=== PATIENT | male | born 1990 | race Caucasian/White ===

== ENCOUNTER 2025-01-30 13:43 | Outpatient (AMB) | payer OTHER, SELFPAY ==
--- NOTE | 2025-01-30 13:46 | A.SPINEOV_ITS ---
Vital Signs 01/30/25 13:55 Height 6 ft Weight 220 lb BMI 29.8 Intake Visit Reasons: Neck pain Intake Note: Mr. Zapata is here today c/o neck pain that radiate down to the arms. 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 He saw Dr. Cedillo about 3 years ago for herniated cervical disc in his neck a C5-6 on the left. He resolved without surgery after a dedicated course of physical therapy. He was doing okay until about 2 weeks ago when he started to notice a little bit of discomfort in his left neck and left arm but 2-3 days ago developed a severe left arm radiculopathy radiating down into the back of his hand. It is very similar to the previous pain that he had before but only much more intense. He was taking ibuprofen, and took a few gabapentin and that seemed to help a little bit. He has been unable to sleep, unable to go to work and he is very uncomfortable. No myelopathic complaints. He does feel weakness in his left arm especially with movement or attempting to use it. He has been doing the physical therapy exercises that he was trained on a few years ago. He came in today for an evaluation. PMH: He has had repair of fractures in both of his wrists, depression, anxiety, IBS but no other major medical problems. Social hx: He does not smoke, on the weekends he will use alcohol and marijuana Medications: Hyoscyamin, and citalopram Allergies: Lactose and sulfa Physical exam: Awake alert oriented, very uncomfortable, positive Spurling sign, a lot of difficulty with cooperating with exam secondary to pain. He may have some weakness of his left triceps which I would rate as 4-5. Reflexes are normal, no Terrazas's, no clonus, gait is normal Imaging review: There is an old MRI from 2021 I believe done at [place] which he brought with him and that shows herniated disc on the left at C5-6 Impression: 34-year-old male who appears to be presenting with recurrence of herniated disc. He saw Dr. Cedillo about 3 years ago with left C5-6 disc herniation and has the exact same pain back now but even more intense. It has only been there few weeks. He has been doing some basic conservative management as outlined above. I called him in a steroid pack, Pepcid and some gabapentin. I told him to take the ibuprofen out of his medication regimen while he is on the steroid. I did order an MRI, but admonished him that given his health insurance company [facility] is likely going to require him to do 6 weeks of therapy before allowing us to do this. I gave him a referral for PT in anticipation of this response from [facility]. I will see him back after the MRI. Thank you for allowing us to care for your patient. The total time spent with this visit with this patient was 45 minutes reviewing history, physical exam, previous cervical MRI imaging review, and implementation of treatment plan or further diagnostic testing Tejas Cedillo MD,PhD [facility] Orders: Orders MR cervical spine wo con Today M54.12 - Radiculopathy, cervical region PT Evaluation and Treatment Today M54.12 - Radiculopathy, cervical region Medications: New gabapentin 300 mg PO TID 90 caps 0RF methylprednisolone take as directed on package 4 mg PO DAILY 21 ea 0RF famotidine (Pepcid) 20 mg PO BID 1 week 14 tabs 0RF Coding Level of Care Code New Pt Level 4 (47494) Diagnoses Cervical radiculopathy M54.12
[2025-01-30 13:55] VITALS: BMI 29.8
== END 2025-01-30 15:09 | disposition home or self-care (01) ==
LOC: HO.HNS 13:43
PROVIDERS: Visit Provider Physician Assistant
DX: M54.12 Radiculopathy, cervical region (principal)
CPT/HCPCS: 99204

== ENCOUNTER 2025-02-05 19:55 | Outpatient (REF) | payer OTHER, SELFPAY ==
--- NOTE | ~2025-02-05 | MR_ITS ---
EXAMINATION: MR CERVICAL SPINE WITHOUT CONTRAST CLINICAL INFORMATION: Radiculopathy, cervical region. COMPARISON: None available. TECHNIQUE: MRI of the cervical spine was obtained using routine sequences without contrast. FINDINGS: Craniocervical junction is intact. No bone marrow STIR signal abnormality. Multilevel disc desiccation and marginal osteophyte formation C5-6 and C6-7 levels. Grade 1 retrolisthesis C5-6. Grade 1 anterolisthesis C6-7. Cervical spinal cord signal is normal. C2-3: No disc herniation. No neuroforamina stenosis. C3-4: Broad-based disc osteophyte complex formation. No cord compression. No neuroforamina stenosis. C4-5: Right-sided disc osteophyte consummation. No cord compression. No neuroforamina stenosis. C5-6: Central disc osteophyte compresses formation resulting in ventral spinal cord deformity. No cord signal abnormality. Bilateral, left greater than the right side neuroforamina narrowing. C6-7: Left-sided disc osteophyte complex formation resulting in ventral spinal cord deformity. No cord signal abnormality. Left neuroforamina and narrowing/stenosis. C7-T1: No disc herniation. No neuroforamina stenosis. No prevertebral compartment hematoma, mass or fluid collection. Flow-void signal within the main vessels is normal. Left vertebral artery is dominant. Nonspecific prominent cervical lymph nodes. Hyperintense T2 STIR signal abnormality within the saurav and likely cerebellar white matter.. MR/MR cervical spine wo con IMPRESSION: Spondylosis, C5-6 and C6-7 levels resulting in spinal cord deformity without cord edema and or myelopathy. Left-sided neuroforamina narrowing at C5-6 and C6-7 on a degenerative basis. 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 Electronically signed by: Can Mcclellan MD 02/06/2025 07:40 AM EDT
== END 2025-02-05 19:56 | disposition home or self-care (01) ==
LOC: HO.MRI 19:55
PROVIDERS: Visit Provider Physician Assistant
DX: M54.12 Radiculopathy, cervical region (principal)
CPT/HCPCS: 72141

== ENCOUNTER → 2025-02-05 20:08 | Outpatient (BNV) | payer OTHER, SELFPAY | PROVIDERS: Visit Provider Radiology Diagnostic Radiology | DX: M47.812 Spondylosis without myelopathy or radiculopathy, cervical region (principal); M99.71 Connective tissue and disc stenosis of intervertebral foramina of cervical region | CPT/HCPCS: 72141 ==

== ENCOUNTER 2025-02-09 14:22 | Outpatient (AMB) | payer OTHER, SELFPAY ==
--- NOTE | 2025-02-09 15:01 | HO.SPINEOV ---
Intake Visit Reasons: MRI f/u Intake Note: Mr. Zapata is here today to F/u on the results to his MRI. 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 Unfortunately, it shows he has a left disc herniation at C6-7 which I suspect is the main culprit of his pain he is currently having. However, the C5-6 foramen on the left is also somewhat narrowed. We talked about the natural history of herniated discs in the neck. This would now be his 2nd 1 that he has experienced in the last 2 years. The pain has been disabling and it is significantly affecting his quality of life. He is currently starting physical therapy so we are going to let that play out because it did help him out a lot last time. He completed the course of steroids. The gabapentin is helping. He will resume the Motrin and Tylenol now that the steroid is finished. I am going to review his imaging with Dr. Cedillo to see if he thinks that if he fails conservative treatment he would benefit from total disc arthroplasty given his young age. I am not sure if he would want to do both the C5-6 and the C6-7, or stick with the C6-7 as it appears to be the acute problem. Also, the patient's report on the cervical spine mentioned small-vessel white matter disease in the brain, but I need some clarification on this from the radiologist as I do not appreciate what they are mentioning in the report. I will see if I can get this amended or updated if there is some confusion. If there is something that looks meaningful, we could always consider brain MRI. Total amount of time spent in this visit was 20 minutes in discussion of symptoms, cervical MRI imaging results and subsequent plan of care Tejas Cedillo MD,PhD [facility] Coding Level of Care Code Est Pt Level 3 (46412) Diagnoses Cervical radiculopathy M54.12
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
--- OUTSIDE RECORDS SUMMARY | 2025-02-09 15:52 | XMS_ITS | Clinical Summary ---
Author Organization [facility] Address [address] [place] [address] Care Team Providers Care Head Boys Golf Coach Name Role Phone Cally Frost MD Primary Care Provider [phone] Source Comments PLEASE NOTE, if this patient is a minor, it may be UNLAWFUL to discuss sensitive information that is contained in these records (such as FAMILY PLANNING, MENTAL HEALTH or SUBSTANCE ABUSE) with the minor patient's parent or other person without the patient's specific authorization.[facility] Allergies Active Allergy Reactions Criticality Noted Date Comments Lactose 08/29/2013 Sulfa (Sulfonamide Antibiotics) Rash 08/10 Medications oxybutynin (DITROPAN) 5 mg tablet Take 0.5 Tabs by mouth 2 (two) times daily as needed for incontinenc e. 10 Tab 0 08/29/2013 Active ergocalciferol, vitamin D2, (VITAMIN D2) 50,000 unit capsuleIndicatio ns:Vitamin D deficiency Take 1 Cap by mouth once a week. 4 Cap 2 09/01/2013 Active fluticasone (FLONASE) 50 mcg/actuation nasal sprayIndications :Sinusitis Place [address] [place] into the nostril(s) once daily. 16 g 1 01/07/2014 Active Active Problems Problem Noted Date Diagnosed Date Vitamin D deficiency 09/01/2013 Urine frequency 08/29/2013 Urgency of micturation 08/29/2013 Smoking 08/29/2013 Alcohol use 08/29/2013 Scaphoid fracture of wrist bilaterally 3 Metacarpal bone fracture- 4 and 5 th finger of r ight hand 08/29/2013 Immunizations Immunization Administration Dates Next Due INFLUENZA, SEASONAL, INJECTABLE 08/29/2013 Family History Medical History Relation Name Comments Hypertension Father Hypertension Mother Relation Name Status Comments Father Mother Social History Tobacco Use Types Packs/Day Years Used Date Smoking Tobacco: Some Days Cigarettes Smokeless Tobacco: Never Tobacco Cessation:Ready to Q uit: No Alcohol Use Standard Drinks/Week Comments Yes 3.3 (1 standard drink = 0.6 oz p ure alcohol) every weekend Sex and Gender Information Value Date Recorded Sex Assigned at Not on file Legal Sex Male 11:36 AM PDT Gender Identity Not on file Sexual Orientation Not on file Last Filed Vital Signs Vital Sign Reading Time Taken Comments Blood Pressure 118/80 01/06/2014 11:09 AM EST Pulse 60 01/06/2014 11:09 AM EST Temperature 36.6 ??C (97.8 ??F) 01/06/2014 11:[address] Respiratory Rate 20 01/06/2014 11:09 AM EST Oxygen Saturation - - Inhaled Oxygen Concentration - - Weight 82.6 kg (182 lb) 01/06/2014 11:09 AM EST Height 182.9 cm (6') 01/06/2014 11:09 AM EST Body Mass Index 24.68 01/06/2014 11:09 AM EST Plan of Treatment Not on file Insurance [facility] [employer] PLAN Member Subscriber Plan / Payer (Ef fective 2013-Present) Name:Milad Zapata Relation to Subscriber:Self Name:Milad Zapata Payer ID:[id number] Group ID:[id number] Type:Medicaid Address: [facility] [address] [place] [address] Care Teams Head Boys Golf Coach Relationship Specialty Start Date End Date Cally Frost MD [address] [place] [address] PCP - General Internal Medicine 08/29/13
== END 2025-02-09 15:39 | disposition home or self-care (01) ==
LOC: HO.HNS 14:22
PROVIDERS: Visit Provider Physician Assistant
DX: M54.12 Radiculopathy, cervical region (principal)
CPT/HCPCS: 99213

== ENCOUNTER 2025-02-28 19:28 | Outpatient (REF) | payer OTHER, SELFPAY ==
--- NOTE | ~2025-02-28 | MR_ITS ---
EXAMINATION: MR BRAIN WITHOUT CONTRAST CLINICAL INFORMATION: Possibility of white matter disease. COMPARISON: Correlated to MRI cervical spine dated February 05, 2025. TECHNIQUE: MRI of the brain was obtained using routine sequences without contrast. FINDINGS: No restricted diffusion. No acute intracranial hemorrhage, mass effect, midline shift, hydrocephalus or herniation. Nguyen-white matter differentiation is normal. There is a subtle patchy hyperintense T2 FLAIR signal within the midline and left midline of the saurav. Flow-void signal within the main cerebral vessels is normal. Sellar/suprasellar region demonstrated no signal abnormality or masses. Craniocervical junction is intact. MR/MR head/brain wo con IMPRESSION: Subtle patchy T2 FLAIR signal, dorsal midline and left midline saurav. Consider IV contrast enhanced sequences. Recommend follow-up in 3 months for stability. Electronically signed by: Can Mcclellan MD 03/01/2025 06:04 AM EDT
--- OUTSIDE RECORDS SUMMARY | 2025-02-28 19:31 | XMS_ITS | Clinical Summary ---
Author Organization [facility] Address [address] [place] [address] Care Team Providers Care Interactive Digital Media Specialist Name Role Phone Niraj Munoz MD Primary Care Provider [phone] Surgical History Surgery Date Site/Laterality Comments WRIST [...] PM EDT Office Visit Internal Medicine - [place] [address] [facility] [address] [place] [address] Niraj Munoz MD 175 [facility] [address] [place] [address] Health Maintenance Due Date Last Done Comments Hepatitis B Vaccines (1 of 3 - 19+ 3-dose series) 2008 Cholesterol Screening (Lipid Panel) 10/18/2022 Depression Screening 10/18/2022 HIV Screening 10/18/2022 Hepatitis C Screening 10/18/2022 Social Influencers of Health Screening 10/18/2022 COVID-19 Vaccine ( season) 2024 08/23/2022, 11/20/2021, 05/02/2021, Additional history exists Influenza Vaccine (Season Ended) 2025 08/06/2023, 09/10/2022, 09/04/2020, Additional history exists DTaP,Tdap,and Td [...] age to complete this topic Meningococcal B Vaccine Aged Out No l onger eligible based on patient's age to complete [...] age to complete this topic Care Teams Interactive Digital Media Specialist Relationship Specialty Start Date End Date Niraj Munoz MD [address] [place] [id number] PCP - General 07/08/24
== END 2025-02-28 19:29 | disposition home or self-care (01) ==
LOC: HO.MRI 19:28
PROVIDERS: PCP Internal Medicine; Visit Provider Physician Assistant
DX: R90.89 Other abnormal findings on diagnostic imaging of central nervous system (principal)
CPT/HCPCS: 70551

== ENCOUNTER → 2025-02-28 19:35 | Outpatient (BNV) | payer OTHER, SELFPAY | PROVIDERS: PCP Internal Medicine; Visit Provider Radiology Diagnostic Radiology | DX: M54.12 Radiculopathy, cervical region (principal) | CPT/HCPCS: 70551 ==

== ENCOUNTER 2025-03-17 13:22 | Outpatient (AMB) | payer OTHER, SELFPAY ==
--- NOTE | 2025-03-17 13:39 | A.SPINEOV_ITS ---
Intake Visit Reasons: discuss sx Intake Note: Mr. Zapata is here today to discuss surgery. Vehicle Damage Appraiser Required: No Allergies lactose Allergy (Severe, Verified 02/09/25 15:02) Unknown Sulfa (Sulfonamide Antibiotics) Allergy (Severe, Verified 02/09/25 15:02) Unknown Assessment & Plan Assessment & Plan (1) Cervical radiculopathy: Code(s): M54.12 - Radiculopathy, cervical region Category: Medical (2) Abnormal brain MRI: Code(s): R90.89 - Other abnormal findings on diagnostic imaging of central nervous system Category: Medical Plan Dear colleague, On 03/17/2025 I saw for follow-up Milad Zapata. He returned to our clinic with pain radiating down his left arm and dorsum of his hand. An MRI showed and herniated disc C6-7 and a disc bulge C5-6 on the left side. He was offered a 2 level artificial disc in case the symptoms would not disappear. He went to physical therapy and currently he is doing well. He denies radiating pain down his left arm. A T2 abnormality was seen in the saurav and an MRI of the brain was ordered which came back showing a small spot in the left saurav. The recommendation was to repeat the MRI in 3 months with gadolinium which we will do. The patient will call for the results. I spent 20 minutes in reviewing imaging and discussing plan of care. Norman Cedillo MD, PhD Spine Fellowship Trained Neurosurgeon Director, [facility] Orders: Orders MR head/brain wo/w con 3 Months R90.89 - Other abnormal findings on diagnostic imaging of central nervous system Coding Level of Care Code Est Pt Level 3 (36911) Diagnoses Cervical radiculopathy M54.12 Abnormal brain MRI R90.89
== END 2025-03-17 14:33 | disposition home or self-care (01) ==
LOC: HO.HNS 13:23
PROVIDERS: PCP Internal Medicine; Visit Provider Neurological Surgery
DX: M54.12 Radiculopathy, cervical region (principal); R90.89 Other abnormal findings on diagnostic imaging of central nervous system
CPT/HCPCS: 99213

== ENCOUNTER → 2025-06-23 17:46 | Outpatient (BNV) | payer OTHER, SELFPAY | PROVIDERS: PCP Internal Medicine; Visit Provider Radiology Diagnostic Radiology | DX: R51.9 Headache, unspecified (principal) | CPT/HCPCS: 70553 ==

== ENCOUNTER 2025-06-23 17:47 | Outpatient (REF) | payer OTHER, SELFPAY ==
--- NOTE | ~2025-06-23 | MR_ITS ---
EXAMINATION: MR BRAIN WITHOUT AND WITH CONTRAST CLINICAL INFORMATION: Headache COMPARISON: February 28, 2025 TECHNIQUE: Multiplanar, multisequence MRI of the brain was obtained before and after the intravenous administration of 10.0 mL gadolinium based (Gadavist) without reported immediate complications.. FINDINGS: No abnormal enhancement within the intra-axial or the extra-axial compartment of the cranium. No restricted diffusion. 6 mm subtle hyperintense T2 signal left midline saurav. No acute intracranial hemorrhage, mass effect, midline shift, hydrocephalus or herniation. Nguyen-white matter differentiation is normal. Sellar/suprasellar region demonstrated no signal abnormality or gross mass. Craniocervical junction demonstrates normal position of the cerebellar tonsils. Flow-void signal within the main cerebral vessels is normal. There is a dolichoectatic left vertebral vascular system. MR/MR head/brain wo/w con IMPRESSION: No abnormal enhancement. No acute stroke/nonhemorrhagic ischemia. No acute intracranial hemorrhage. 6 mm left midline saurav signal abnormality. Stable. Recommend follow-up. Electronically signed by: Can Mcclellan MD 06/26/2025 07:22 AM EDT
--- OUTSIDE RECORDS SUMMARY | 2025-06-23 17:49 | XMS_ITS | Encounter Summary ---
Author Organization [facility] Address [address] [place] [address] Care Team Providers Care Manager Of Financial Reporting Name Role Phone Niraj Munoz MD Primary Care Provider [phone] Encounter Details Date Type Department Care Team (Late Contact Info) Description 06/12/[address] [facility] - Main Lab [address] [facility] [place] [address] Tejas Rodrigez MD [address] [facility] [address] [place] [address] Testicular hypofunction Social History Tobacco Use Types Packs/Day Years [...] on file Sexual Orientation Not on file documented as of this encounter Plan of Treatment Upcoming Encounters Date Type Department Care Team (Late Contact Info) Description 08/03/2025 2:00 PM EDT Office Visit Internal Medicine - [place] [address] [facility] [address] [place] [address] Niraj Munoz MD 175 [facility] 200 [place] [address] documented as of this encounter Procedures Procedure Name Priority Date/Time Associated Diagnosis Comments COMPLETE BLOOD COUNT Routine 06/12/2025 9:47 AM EDT Testicular hypofunction documented in this encounter Results * Complete blood count (06/12/2025 9:47 AM EDT) [facility] Signature WBC 6.4 4.8 - 10.8 K/mcL LAB HEMETOLOGY METHOD 06/12/2025 1:36 PM EDT [facility] RBC 4.90 4.50 - 5.50 M/mcL LAB [facility] Hemoglobin 15.4 13.5 - 17.5 g/dL LAB HEMETOLOGY METHOD 06/12/2025 1:36 PM [facility] Hematocrit 44.2 42.0 - 54.0 % LAB HEMETOLOGY METHOD 06/12/2025 1:36 PM [facility] MCV 89.7 79.0 - 98.0 FL LAB HEMETOLOGY METHOD 06/12/2025 1:36 PM [facility] MCH 31.2 27.0 - 32.0 pcg LAB HEMETOLOGY METHOD 06/12/2025 1:36 PM [facility] MCHC 34.8 32.0 - 37.0 g/dL LAB HEMETOLOGY METHOD 06/12/2025 1:36 PM [facility] RDW 12.7 11.0 - 15.0 % LAB HEMETOLOGY METHOD 06/12/2025 1:36 PM [facility] Platelets 212 130 - 400 K/mcL LAB HEMETOLOGY METHOD 06/12/2025 1:36 PM [facility] MPV 11.0 7.0 - 11.0 FL LAB HEMETOLOGY METHOD 06/12/2025 1:36 PM [facility] NRBC 0.0 <1.0 % LAB HEMETOLOGY METHOD 06/12/2025 1:36 PM [facility] NRBC Absolute 0.00 <0.10 K/mcL LAB HEMETOLOGY METHOD 06/12/2025 1:36 PM EDT [facility] Blood Venous blood specimen / Unknown 06/12/2025 9:47 AM EDT 06/12/2025 12:20 PM EDT us Tejas Rodrigez MD LAB BLOOD ORDERABLES Final Result [facility] ([facility] [address] [place] [address], documented in this encounter Visit Diagnoses Diagnosis Testicular hypofunction Other testicular hypofunction documented in this encounter Care Teams Manager Of Financial Reporting Relationship Specialty Start Date End Date Niraj Munoz MD [address] [address] PCP - General 07/08/24 documented as of this encounter
== END 2025-06-23 17:48 | disposition home or self-care (01) ==
LOC: HO.MRI 17:47
PROVIDERS: PCP Internal Medicine; Visit Provider Neurological Surgery
DX: R09.89 Other specified symptoms and signs involving the circulatory and respiratory systems (principal)
CPT/HCPCS: 70553; A9585

== ENCOUNTER 2025-10-27 09:40 | Outpatient (AMB) | payer OTHER, SELFPAY ==
--- NOTE | 2025-10-27 09:50 | MHC.PC.OV ---
Vital Signs 10/27/25 09:51 Height 5 ft 9.76 in Weight 230 lb BMI 33.2 BP 130/80 Blood Pressure Location Rt brachial Position Sitting Respiration 16 Pulse 72 Pulse Source Pulse Oximeter Temp 98 F Temp Source Oral Pulse Oximetry (%) 95 Oxygen Delivery Method Room Air Intake Visit Reasons: CPE Allergies lactose Allergy (Severe, Verified 10/27/25 09:51) Unknown Sulfa (Sulfonamide Antibiotics) Allergy (Intermediate, Verified 10/27/25 09:51) Hives Tobacco use date assessed: 10/27/25 Dental Screening Dental Screen Date: 10/27/25 Did you have a dental visit in the last 12 months?: Yes Did you have a dental problem in the last 6 months where you did not have access to dental care?: No Was dental information given to patient?: Patient has dentist HPI HPI Comments History of Present Illness Details 35 year old male with a past medical history of low testosterone, cervical radiculopathy, IBS, anxiety presenting to establish care/CPE Anxiety: Was on celexa. Doing ok off medication. Tried sertraline. Urology: Follows with [facility] urology. Low testosterone. Had extreme fatigue, decreased libido History of bilateral wrist injury snowboarding. Had bilateral wrist surgery at [facility] Colonoscopy in 2020-10 years. Family history of issues, was having GI issues. Has not needed hyoscyamine Dental UTD ROS CONSTITUTIONAL: Denies weight loss, fever and chills. HEENT: Denies changes in vision and hearing. RESPIRATORY: Denies SOB and cough. CV: Denies palpitations and CP GI: Denies abdominal pain, nausea, vomiting and diarrhea. : Denies dysuria and urinary frequency. MSK: Denies new myalgia and joint pain. SKIN: Denies rash and pruritus. NEUROLOGICAL: Denies headache PSYCHIATRIC: Denies recent changes in mood. PHYSICAL EXAM: GENERAL: Alert and oriented x 3. NAD EYES: EOMI. Anicteric. HENT: Moist mucous membranes. No scleral icterus. No cervical lymphadenopathy. LUNGS: Clear to auscultation bilaterally. CARDIOVASCULAR: Regular rate and rhythm. No murmur. No JVD. ABDOMEN: Soft, non-tender +bs EXTREMITIES: No edema. Non-tender. SKIN: No rashes or lesions. Warm. NEUROLOGIC: No focal neurological deficits. CN II-XII grossly intact PSYCHIATRIC: Cooperative. Appropriate mood and affect [facility] Surgical History H/O right wrist surgery H/O left wrist surgery Family History Mother HTN (hypertension) Father HTN (hypertension) COPD (chronic obstructive pulmonary disease) Chronic back pain Cardiac disease Sister Asthma Maternal Grandmother Stroke Paternal Grandmother Lung cancer Maternal Grandfather Lung cancer Other Substance abuse Social History Housing: House Alcohol intake: current Patient Tobacco Use Status: Former Tobacco user Cigarette Packs Per Day: 0.5 Years Smoked: 9 e-Cigarette/Vaping Use: Currently Using Second Hand Smoke Exposure: No Substance Use Type: Marijuana service: No Current occupational status: employed 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 1. Little interest or pleasure in doing things: not at all 2. Feeling down, depressed, or hopeless: not at all 3. Trouble falling or staying asleep, or sleeping too much: several days 4. Feeling tired or having little energy: more than half the days 5. Poor appetite or overeating: not at all 6. Feeling bad about yourself - or that you are a failure or have let yourself or your family down: not at all 7. Trouble concentrating on things, such as reading the newspaper or watching television: several days 8. Moving or speaking so slowly that other people could have noticed. Or the opposite - being so fidgety or restless that you have been moving around a lot more than usual: not at all 9. Thoughts that you would be better off or of hurting yourself in some way: not at all Total score: 4 Depression Screening Interpretation: Positive Depression Screening Done: Yes 09833 - PHQ-9 Billing: Yes Source: Developed by Drs. Chris Ferguson, Chanel Ponce, Donta Perez and colleagues, with an educational chun from [employer]. Thrive Questionnaire Date Thrive assessed: 10/21/25 I am a: Patient What is your living situation today?: I have a steady place to live Within the past 12 months, did the food you bought not last and you didn't have the money to get more?: Never true Within the past 12 months, did you worry whether your food would run out before you got money to buy more?: Never true Do you have trouble paying for medicines?: No Do you have trouble getting transportation to medical appointments?: No Do you have trouble paying your heating and electricity bill?: No Do you have trouble taking care of your child, family member or friend?: No Do you have trouble with day-to-day activities such as bathing, preparing meals, shopping, managing finances, etc.?: No Are you currently unemployed and looking for a job?: No Are you interested in more education?: No Please select the resources that you would like help with: None Currently or been in a relationship where the following occur: No concerns reported THRIVE Score: 0 AUDIT C Alcohol Use Questionnaire (AUDIT-C) 1. How often do you have a drink containing alcohol?: 2-4 times a month 2. How many drinks containing alcohol do you have on a typical day when you are drinking?: 1 or 2 3. How often do you have six or more drinks on one occasion?: Never Total Score: 2 CHRISTI-7 AMB Questionnaire CHRISTI-7 Date CHRISTI - 7 assessed: 10/27/25 Feeling nervous, anxious, or on edge: 1 = Several days Not being able to stop or control worryin = Several days Worrying too much about different things: 1 = Several days Trouble relaxin = Several days Being so restless that it is hard to sit still: 0 = Not at all Becoming easily annoyed or irritable: 0 = Not at all Feeling afraid as if something awful might happen: 0 = Not at all Total CHRISTI-7 score (0-4 normal; 5-9 mild; 10-14 moderate; 15-21 severe): 4 Source: Developed by Drs. Chris Ferguson, Chanel Ponce, Dnota Perez and colleagues, with an educational chun from [employer]. CHRISTI-7 Assessment Billing CHRISTI-7 Assessment Tool: CHRISTI-7 Assessment 61960 Physical exam (Primary Care) Vital Signs: Last Vital Signs Temp 98 F 10/27/25 09:51 Pulse 72 10/27/25 09:51 Resp 16 10/27/25 09:51 BP 130/80 10/27/25 09:51 Pulse Ox 95 10/27/25 09:51 Oxygen Delivery Method Room Air 10/27/25 09:51 BMI result Body Mass Index 33.2 Tobacco/Smoking Status: Tobacco use Status Tobacco use date assessed 10/27/25 10/27/25 09:56 Patient Tobacco Use Status Former Tobacco user 10/27/25 10:02 e-Cigarette/Vaping Use Currently Using 10/27/25 10:02 PHQ-9: PHQ-9 Score PHQ-9: Total score 4 10/30/25 12:39 Depression Screening Interpretation: Positive Thrive Assessment: Date of Thrive Assessment Date Thrive assessed 10/21/25 10/27/25 09:51 Currently or been in a relationship where the following occur: No concerns reported Coding Level of Care Code New Pt Prev Care 18-39yr([id number] Diagnoses Physical exam Z00.00 Encounter to establish care Z76.89 Anxiety F41.9 Abnormal brain MRI R90.89 Additional Codes CHRISTI-7 Assessment Billing - CHRISTI-7 Assessment Tool: CHRISTI-7 Assessment 47110 ([id number]) PHQ-9 - 22252 - PHQ-9 Billing: Yes ([id number]) Assessment & Plan Assessment & Plan (1) Physical exam: Code(s): Z00.00 - Encounter for general adult medical examination without abnormal findings (2) Encounter to establish care: Code(s): Z76.89 - Persons encountering health services in other specified circumstances Category: Medical (3) Anxiety: Code(s): F41.9 - Anxiety disorder, unspecified Category: Medical (4) Abnormal brain MRI: Code(s): R90.89 - Other abnormal findings on diagnostic imaging of central nervous system Category: Medical Plan 35 year old to establish care/cpe Past medical, surgical, social reviewed Preventive measures for age discussed Anxiety, attention deficit-trial wellbutrin Continues testosterone replacement with urology Orders: Orders Lipid Panel 10/27/25 R53.83 - Other fatigue, Z13.0 - Encounter for screening for diseases of the blood and blood-forming organs and certain disorders involving the immune mechanism, Z13.220 - Encounter for screening for lipoid disorders, Z13.228 - Encounter for screening for other metabolic disorders TSH reflex Free T4 10/27/25 R53.83 - Other fatigue, Z13.0 - Encounter for screening for diseases of the blood and blood-forming organs and certain disorders involving the immune mechanism, Z13.220 - Encounter for screening for lipoid disorders, Z13.228 - Encounter for screening for other metabolic disorders Lyme IgG/IgM w/reflex to WB 10/27/25 F41.9 - Anxiety disorder, unspecified, R79.89 - Other specified abnormal findings of blood chemistry Vitamin B12 and Folate 10/27/25 R53.83 - Other fatigue RT home sleep study 10/27/25 R06.83 - Snoring, R53.83 - Other fatigue Comprehensive Met. Panel 10/27/25 R53.83 - Other fatigue, Z13.0 - Encounter for screening for diseases of the blood and blood-forming organs and certain disorders involving the immune mechanism, Z13.220 - Encounter for screening for lipoid disorders, Z13.228 - Encounter for screening for other metabolic disorders Hemoglobin A1c 10/27/25 R53.83 - Other fatigue, Z13.0 - Encounter for screening for diseases of the blood and blood-forming organs and certain disorders involving the immune mechanism, Z13.220 - Encounter for screening for lipoid disorders, Z13.228 - Encounter for screening for other metabolic disorders IRON PROFILE 10/27/25 R53.83 - Other fatigue Medications: New bupropion HCl XL (Wellbutrin XL) 150 mg PO QAM 30 tabs 1RF
[2025-10-27 09:51] VITALS: BP 130/80; PULSE 72; RESP 16; TEMP 36.6; O2SAT 95; BMI 33.2
--- OUTSIDE RECORDS SUMMARY | 2025-10-27 10:30 | XMS_ITS | Encounter Summary ---
Author Organization [facility] Address [address] [place] [address] Care Team Providers Care Flatbed Owner Operator Name Role Phone Niraj Munoz MD Primary Care Provider [phone] Encounter Details Date Type Department Care Team (Late st Contact Info) Description 06/12/[address] [facility] - Main Lab [address] [place] [address] Tejas Rodrigez MD [facility] [address] [place] [address] Testicular hypofunction Social History Tobacco Use Types Packs/Day Years Used Date Smoking Tobacco: Former Cigarettes 0.3 Q uit: 02/10/2022 Smokeless Tobacco: Never Alcohol Use Standard Drinks/Week Comments Yes 0 (1 standard drink = 0.6 oz pur e alcohol) Sex and Gender Information Value Date Recorded Sex Assigned at Not on file Legal Sex Male 10:02 PM EST Gender Identity Not on file Sexual Orientation Not on file documented as of this encounter Plan of Treatment Not on file documented as of this encounter Procedures Procedure Name Priority Date/Time Associated Diagnosis Comments COMPLETE BLOOD COUNT Routine 06/12/2025 9:47 AM EDT Testicular hypofunction documented in this encounter Results * Complete blood count (06/12/2025 9:47 AM EDT) WBC 6.4 4.8 - 10.8 K/[facility] LAB HEMETOLOGY METHOD 06/12/2025 1:36 PM EDT [facility] ([facility] RBC 4.90 4.50 - 5.50 M/mcL LAB HEMETOLOGY METHOD 06/12/2025 1:36 PM EDT [facility] LAB Hemoglobin 15.4 13.5 - 17.5 g/dL LAB HEMETOLOGY METHOD 06/12/2025 1:36 PM EDT [facility] LAB Hematocrit 44.2 42.0 - 54.0 % LAB HEMETOLOGY METHOD 06/12/2025 1:36 PM EDT [facility] LAB MCV 89.7 79.0 - 98.0 FL LAB HEMETOLOGY METHOD 06/12/2025 1:36 PM EDT [facility] LAB MCH 31.2 27.0 - 32.0 pcg LAB [facility]OLOG[facility]C 34.8 32.0 - 37.0 g/dL LAB HEMETOLOGY METHOD 06/12/2025 1:[facility] RDW 12.7 11.0 - 15.0 % LAB [facility]EMETOLOGY METHOD 06/12/2025 1:[facility] Platelets 212 130 - 400 K/mcL LAB HEMETOLOGY METHOD 06/12/2025 1:36 PM [facility] LAB MPV 11.0 7.0 - 11.0 FL LAB HEMETOLOGY METHOD [facility]/12[facility]25 1[facility] NRBC 0.0 <1.0 % LAB HEMETOLOGY METHOD 06/12/2025 1:36 PM [facility] LAB NRBC Absolute 0.00 <0.10 K/mcL LAB HEMETOLOGY METHOD 06/12/2025 1:36 PM [facility] LAB Blood Venous blood specimen / Unknown 06/12/2025 9:47 AM EDT 06/12/2025 12:20 PM EDT us Tejas Rodrigez MD LAB BLOOD ORDERABLES Final Result [facility] ([facility] LAB [address] [place] [address], documented in this encounter Visit Diagnoses Diagnosis Testicular hypofunction Other testicular hypofunction documented in this encounter Care Teams Flatbed Owner Operator Relationship Specialty Start Date End Date Niraj Munoz MD [address] [address] PCP - General 07/08/24 documented as of this encounter
--- OUTSIDE RECORDS SUMMARY | 2025-10-27 10:30 | XMS_ITS | Encounter Summary ---
Author Organization [facility] Address [address] [place] [address] Care Team Providers Care Entry Level Finance Name Role Phone Niraj Munoz MD Primary Care Provider Encounter Details Date Type Department Care Team (Late st Contact Info) Description 08/11/2025 Lab Requisition [facility] - Main Lab [address] [place] [address] [facility] [address] [place] [address] Testicular hypofunction Social History Tobacco Use Types [...] Associated Diagnosis Comments COMPLETE BLOOD COUNT Routine 08/11/2025 9:01 AM EDT Testicular hypofunction documented in this encounter Results * Complete blood count (08/11/2025 9:01 AM EDT) WBC 6.0 4.8 - 10.8 K/[facility] LAB HEMETOLOGY METHOD 08/11/2025 11:17 AM EDT [facility] ([facility] LAB RBC 5.10 4.50 - 5.50 M/mcL LAB HEMETOLOGY METHOD 08/11/2025 11:17 AM [facility] LAB Hemoglobin 15.8 13.5 - 17.5 g/dL LAB HEMETOLOGY METHOD 08/11/2025 11:17 AM [facility] LAB Hematocrit 45.0 42.0 - 54.0 % LAB HEMETOLOGY METHOD 08/11/2025 11:17 AM [facility] LAB MCV 88.4 79.0 - 98.0 FL LAB HEMETOLOGY METHOD 08/11/2025 11:17 AM [facility] LAB MCH 31.0 27.0 - 32.0 pcg LAB HEMETOLOGY METHOD 08/11/2025 11:17 AM [facility] LAB MCHC 35.1 32.0 - 37.0 g/dL LAB HEMETOLOGY METHOD 08/11/2025 11:17 AM [facility] LAB RDW 12.5 11.0 - 15.0 % LAB HEMETOLOGY METHOD 08/11/2025 11:17 AM [facility] LAB Platelets 227 130 - 400 K/mcL LAB HEMETOLOGY METHOD 08/11/2025 11:17 AM [facility] LAB MPV 10.9 7.0 - 11.0 FL LAB HEMETOLOGY METHOD 08/11/2025 11:17 AM [facility] LAB NRBC 0.0 <1.0 % LAB HEMETOLOGY METHOD 08/11/2025 11:17 AM [facility] LAB NRBC Absolute 0.00 <0.10 K/mcL LAB HEMETOLOGY METHOD 08/11/2025 11:17 AM [facility] LAB Blood Venous blood specimen / Unknown 08/11/2025 9:01 AM EDT 08/11/2025 11:09 AM EDT us Tejas Rodrigez MD LAB BLOOD ORDERABLES Final Result [facility] ([facility] LAB [address] [place] [address], documented in this encounter Visit Diagnoses Diagnosis Testicular hypofunction Other testicular hypofunction documented in this encounter Care Teams Entry Level Finance Relationship Specialty Start Date End Date Niraj Munoz MD [address] [address] PCP - General 07/08/24 documented as of this encounter
--- OUTSIDE RECORDS SUMMARY | 2025-10-27 10:30 | XMS_ITS | Encounter Summary ---
Author Organization [facility] Address [address] [place] [address] Care Team Providers Care Kennel Attendant Name Role Phone Niraj Munoz MD Primary Care Provider [phone] Encounter Details Date Type Department Care Team (Late st Contact Info) Description 10/03/2025 Lab Requisition [facility] - Main Lab [address] [place] [address] [facility]z MD [facility] [address] [place] [address] Testicular hypofunction Social History Tobacco Use Types [...] Associated Diagnosis Comments COMPLETE BLOOD COUNT Routine 10/03/2025 8:18 AM EST Testicular hypofunction documented in this encounter Results * Complete blood count (10/03/2025 8:18 AM EST) WBC 6.5 4.8 - 10.8 K/[facility] LAB HEMETOLOGY METHOD 10/03/2025 12:33 PM EST [facility] ([facility] LAB RBC 5.30 4.50 - 5.50 M/mcL LAB HEMETOLOGY METHOD 10/03/2025 12:33 PM [facility] LAB Hemoglobin 16.6 13.5 - 17.5 g/dL LAB HEMETOLOGY METHOD 10/03/2025 12:33 PM [facility] LAB Hematocrit 46.7 42.0 - 54.0 % LAB HEMETOLOGY METHOD 10/03/2025 12:33 PM [facility] LAB MCV 88.4 79.0 - 98.0 FL LAB HEMETOLOGY METHOD 10/03/2025 12:33 PM [facility] LAB MCH 31.4 27.0 - 32.0 pcg LAB HEMETOLOGY METHOD 10/03/2025 12:33 PM [facility] LAB MCHC 35.5 32.0 - 37.0 g/dL LAB HEMETOLOGY METHOD 10/03/2025 12:33 PM [facility] LAB RDW 12.6 11.0 - 15.0 % LAB HEMETOLOGY METHOD 10/03/2025 12:33 PM [facility] LAB Platelets 238 130 - 400 K/mcL LAB HEMETOLOGY METHOD 10/03/2025 12:33 PM [facility] LAB MPV 11.0 7.0 - 11.0 FL LAB HEMETOLOGY METHOD 10/03/2025 12:33 PM [facility] LAB NRBC 0.0 <1.0 % LAB HEMETOLOGY METHOD 10/03/2025 12:33 PM [facility] LAB NRBC Absolute 0.00 <0.10 K/mcL LAB HEMETOLOGY METHOD 10/03/2025 12:33 PM [facility] LAB Blood Venous blood specimen / Unknown 10/03/2025 8:18 AM EST 10/03/2025 12:08 PM EST Tejas Rodrigez MD LAB BLOOD ORDERABLES Final Result [facility] [address] [place] [address], documented in this encounter Visit Diagnoses Diagnosis Testicular hypofunction Other testicular hypofunction documented in this encounter Care Teams Kennel Attendant Relationship Specialty Start Date End Date Niraj Munoz MD [address] [address] PCP - General 07/08/24 documented as of this encounter
--- OUTSIDE RECORDS SUMMARY | 2025-10-27 10:30 | XMS_ITS | Clinical Summary ---
Author Organization [address] Address [address] [place] [address] Phone Care Team Providers Care Hospital Nurse Liaison Name Role Phone Niraj Munoz MD Primary Care Provider [phone] Medications citalopram (CeleXA) 10 mg tabletIndication s:Anxiety disorder, unspecified TAKE 1 TABLET BY MOUTH EVERY DAY 30 tablet 5 06/06/2025 Active Encounters Date Type Department Care Team Description 10/03/2025 Lab Requisition [facility] - Main Lab [address] [place] [phone] Tejas Rodrigez MD Testicular hypofunction 08/11/2025 Lab Requisition [facility] - Main Lab [address] [place] [phone] Tejas Rdorigez MD Testicular hypofunction from Last 3 Months Surgical History Surgery Date Site/Laterality Comments WRIST [...] 08/09/2024 12:08 PM EDT Plan of Treatment Health Maintenance Due Date Last Done Comments Hepatitis B Vaccines (1 of 3 - 19+ 3-dose series) 2008 HPV Vaccines (1 - 3-dose SCDM series) 2016 Cholesterol Screening (Lipid Panel) 10/18/2022 HIV Screening 10/18/2022 Hepatitis C Screening 10/18/2022 Social Influencers of Health Screening 10/18/2022 Depression Screening 11/09/2024 COVID-19 Vaccine (2024- season) 2025 08/23/2022, 11/20/2021, 05/02/2021, Additional history exists Influenza Vaccine (#1) 2025 , 09/10/2022, 09/04/2020, Additional history exists DTaP,Tdap,and Td Vaccines (3 - Td or Tdap) 05/08/2033 05/08/2023, 05/31/2012 RSV Immunization Adult Patients (1 - 1-dose 75+ series) 2064 Hepatitis A Vaccines Aged Out 06/02/2012 No [...] 5 Years) and At-Risk Patients (6 to 49 Years) Aged Out No longer eligible based on patient's age to complete this topic RSV Immunization Patients Under 20 months Aged Out No longer eligible based on patient's age to complete this topic Varicella Vaccines Aged Out No longer eligible based on patient's age to complete this topic Procedures Procedure Name Priority Date/Time Associated Diagnosis Comments COMPLETE BLOOD COUNT Routine 10/03/2025 8:18 AM EST Testicular hypofunction COMPLETE BLOOD COUNT Routine 08/11/2025 9:01 AM EDT Testicular hypofunction from Last 3 Months Results * Complete blood count (10/03/2025 8:18 AM EST) Only the most recent of2 resultswithin the time period is included. WBC 6.5 4.8 - 10.8 K/mcL LAB HEMETOLOGY METHOD 10/03/2025 12:33 PM [facility] LAB RBC 5.30 4.50 - 5.50 M/mcL LAB HEMETOLOGY METHOD 10/03/2025 12:33 PM [facility] LAB Hemoglobin 16.6 13.5 - 17.5 g/dL LAB HEMETOLOGY METHOD 10/03/2025 12:33 PM [facility] LAB Hematocrit 46.7 42.0 - 54.0 % LAB HEMETOLOGY METHOD 10/03/2025 12:33 PM [facility] LAB MCV 88.4 79.0 - 98.0 FL LAB HEMETOLOGY METHOD 10/03/2025 12:33 PM EST [facility] LAB MCH 31.4 27.0 - 32.0 pcg LAB HEMETOLOGY METHOD 10/03/2025 12:33 PM [facility] LAB MCHC 35.5 32.0 - 37.0 g/dL LAB HEMETOLOGY METHOD 10/03/2025 12:33 PM [facility] LAB RDW 12.6 11.0 - 15.0 % LAB HEMETOLOGY METHOD 10/03/2025 12:33 PM [facility] LAB Platelets 238 130 - 400 K/mcL LAB HEMETOLOGY METHOD 10/03/2025 12:33 PM [facility] LAB MPV 11.0 7.0 - 11.0 FL LAB HEMETOLOGY METHOD 10/03/2025 12:33 PM [facility] LAB NRBC 0.0 <1.0 % LAB HEMETOLOGY METHOD 10/03/2025 12:33 PM [facility] LAB NRBC Absolute 0.00 <0.10 K/mcL LAB HEMETOLOGY METHOD 10/03/2025 12:33 PM [facility] LAB Blood Venous blood specimen / Unknown 10/03/2025 8:18 AM EST 10/03/2025 12:08 PM EST Tejas Rodrigez MD LAB BLOOD ORDERABLES Final Result [facility] [address] [place] [address], from Last [address] [facility] [id number] Care Teams Hospital Nurse Liaison Relationship Specialty Start Date End Date Niraj Munoz MD [address] [place] [address] PCP - General 07/08/24
== END 2025-10-27 10:22 | disposition home or self-care (01) ==
LOC: HO.HMCFM 09:41
PROVIDERS: PCP Internal Medicine; Visit Provider Internal Medicine
DX: Z00.00 Encounter for general adult medical examination without abnormal findings (principal); Z76.89 Persons encountering health services in other specified circumstances; F41.9 Anxiety disorder, unspecified; R90.89 Other abnormal findings on diagnostic imaging of central nervous system

== ENCOUNTER 2025-10-27 09:40 | Outpatient (REF) | payer OTHER, SELFPAY ==
[2025-10-27 16:52] LABS: Folate 9.9 ng/mL (> or = 4.0); Vitamin B12 470 pg/mL (200-900)
[2025-10-27 17:35] LABS: Alanine Aminotransferase 43 U/L (0-40); Albumin Level 4.6 g/dL (3.5-5.0); Alkaline Phosphatase 100 U/L (39-117); Anion Gap 10 (12-20); Aspartate Amino Transferase 34 U/L (5-37); Blood Urea Nitrogen 10 mg/dL (9-16); Calcium 9.8 mg/dL (8.4-10.2); Carbon Dioxide 26 mmol/L (22-29); Chloride 108 mmol/L (96-108); Cholesterol 227 mg/dL (<200); Estimated Glomerular Filt Rate > 60; HDL Cholesterol 39 mg/dL (>40); Iron 108 mcg/dL (45-160); Percent Iron Saturation 31 % (15-50); Potassium 3.9 mmol/L (3.3-5.1); Sodium 140 mmol/L (135-145); Total Iron Binding Capacity 349 mcg/dL (228-428); Total Protein 7.0 g/dL (6.5-8.0); Triglycerides 184 mg/dL (<150); Unsaturated Iron Binding 241 ug/dL
[2025-10-28 05:29] LABS: Lyme Abs Screen <0.90 index
== END 2025-10-27 09:41 | disposition home or self-care (01) ==
LOC: HO.WFDLDS 09:40
PROVIDERS: PCP Internal Medicine; Visit Provider Internal Medicine
DX: Z00.00 Encounter for general adult medical examination without abnormal findings (principal); R53.83 Other fatigue; R79.89 Other specified abnormal findings of blood chemistry; F41.9 Anxiety disorder, unspecified; Z13.0 Encounter for screening for diseases of the blood and blood-forming organs and certain disorders involving the immune mechanism; Z13.220 Encounter for screening for lipoid disorders; Z13.228 Encounter for screening for other metabolic disorders; Z76.89 Persons encountering health services in other specified circumstances
CPT/HCPCS: 36415; 80053; 80061; 82607; 82746; 83036; 83540; 84443; 86617; 86618; 96127